=== PATIENT | female | born 1965 | race Caucasian/White ===

== ENCOUNTER 2024-10-24 06:29 | Day surgery (SDC) | payer OTHER, SELFPAY | END 2024-10-24 12:12 | disposition home or self-care (01) | LOC: GI 06:29 | PROVIDERS: ATTENDING PHYSICIAN Internal Medicine Gastroenterology | DX: K44.9 Diaphragmatic hernia without obstruction or gangrene (principal); K22.70 Barrett's esophagus without dysplasia | CPT/HCPCS: 43239; 88305 ==